=== PATIENT | male | born 1955 ===

== ENCOUNTER 2023-02-07 12:15 | Inpatient (IN) | payer OTHER ==
[~2023-02-07] VITALS: Ht 170.2 cm; Wt 0.9 kg
[2023-02-07] MEDS ORDERED: METFORMIN HCL500 M3 PO (14:32)
[2023-02-07] MEDS ORDERED: RESTORIL30 M1 PO (14:33)
[2023-02-07] MEDS ORDERED: LUMIGAN2.5 M1 OP (14:34)
[2023-02-07] MEDS ORDERED: ROSUVASTATIN CAL5 MG PO (14:34)
[2023-02-07] MEDS ORDERED: ZESTRIL20 MG PO (14:34)
[2023-02-13] MEDS ORDERED: OPTIVE EYE DROP15 ML (07:59)
[2023-02-13] MEDS ORDERED: MELOXICAM15 MG (07:59)
[2023-02-13] MEDS ORDERED: ROSUVASTATIN CA10 MG (07:59)
[2023-02-13] MEDS ORDERED: FLONASE16 GM (07:59)
[2023-02-14] MEDS ORDERED: PERCOCET 5-3251 EACH PO (08:28)
[2023-02-14] MEDS ORDERED: CIPRO500 MG PO (08:28)
[2023-02-14] MEDS ORDERED: ELIQUIS2.5 MG PO (08:28)
== END 2023-02-15 19:52 | DRG 470 ==
LOC: SURH 02-13 05:00 → O/R 02-13 05:00 → SURH 02-13 09:00
PROVIDERS: ADMIT Orthopaedic Surgery; ATTEND Orthopaedic Surgery
PROC: 0SRD0J9 Replacement of Left Knee Joint with Synthetic Substitute, Cemented, Open Approach (ICD-10-PCS; principal; 2023-02-13 09:00)
DX: M17.12 Unilateral primary osteoarthritis, left knee (principal); D62 Acute posthemorrhagic anemia; I10 Essential (primary) hypertension; E11.9 Type 2 diabetes mellitus without complications; Z79.4 Long term (current) use of insulin